=== PATIENT | female | born 1935 | race Caucasian/White ===

== ENCOUNTER 2019-07-03 09:51 | Observation (INO) ==
[2019-07-03] MEDS ORDERED: ASPIRIN 325 MG TABLET PO STA (10:34)
[2019-07-03] MEDS ORDERED: fentaNYL 100 MCG/2 ML VIAL IV STA (10:34)
[2019-07-03] MEDS ORDERED: ONDANSETRON 4 MG/2 ML VIAL IV STA ×2 (10:34→12:01)
[2019-07-03] MEDS ORDERED: hydrALAZINE 20 MG/1 ML VIAL IV STA (10:34)
[2019-07-03 10:57] LABS: Basophils # 0.1 10*3/uL (0.0-0.2); Basophils % 0.9 % (0.0-0.8); Eosinophils # 0.2 10*3/uL (0.0-0.87); Eosinophils % 2.3 % (0.00-10.9); Hematocrit 44.2 VOL% (35.7-47.0); Hemoglobin 15.5 GM/DL (12.0-16.0); Immature Granulocytes % 0.3 %; Immature Granulocytes Absolute 0.02 #; Lymphocytes % 31.5 % (21.3-54.2); Mean Corpuscular HGB Conc 35.1 GM/DL (32-36); Mean Platelet Volume 11.3 FL (9.6-12.0); Monocytes % 8.6 % (1.7-12.7); Neutrophils % 56.4 % (38.7-73.9); Platelet Count 153 T/CUMM (130-400); Red Blood Count 5.08 MC/CUMM (3.8-5.5); White Blood Count 6.4 T/CUMM (4-12)
[2019-07-03 11:08] LABS: PT Patient Result 10.6 SECS (9.6-12.2); Partial Thromboplastin Time 27.5 SECS (20.8-36.0)
[2019-07-03 11:27] LABS: Alanine Aminotransferase 27 U/L (13-56); Albumin 3.6 G/DL (3.4-5.0); Alkaline Phosphatase 124 U/L (45-117); Aspartate Amino Transferase 30 U/L (0-37); Blood Urea Nitrogen 12 MG/DL (7-18); CKMB % 4.6 %; Calcium 9.6 MG/DL (8.5-10.1); Glucose 107 MG/DL (74-106); Osmolality,Calculated 280.3 MOS/KG (273-304); Total Protein 7.7 G/DL (6.4-8.3); Troponin I < 0.015 NG/ML (0.00-0.045)
[2019-07-03] MEDS ORDERED: MEPERIDINE 50 MG/1 ML VIAL IM STA (14:45)
[2019-07-03] MEDS ORDERED: PROMETHAZINE 25 MG/1 ML VIAL IM STA (14:46)
[2019-07-03] MEDS ORDERED: cloNIDine 0.1 MG TABLET PO PRN (16:17)
[2019-07-03] MEDS ORDERED: ACETAMINOPHEN 500 MG TABLET PO PRN (16:17)
[2019-07-03] MEDS ORDERED: CLORAZEPATE 7.5 MG TABLET PO PRN (16:17)
[2019-07-03] MEDS ORDERED: ONDANSETRON 4 MG/2 ML VIAL IV PRN (16:17)
[2019-07-03] MEDS: FUROSEMIDE 20 MG/2 ML VIAL IV SCH (16:54)
[2019-07-03] MEDS: METOCLOPRAMIDE 10 MG/2 ML VIAL IV SCH (17:53)
[2019-07-03 18:25] LABS: Apearance,Urine CLOUDY (Clear); Bacteria,Urine Occasional /HPF (Few); Bilirubin,Urine Negative (Negative); Blood, Urine Negative (Negative); Glucose,Urine (UA) Negative (Negative); Hyaline Casts,Urine 4 /LPF (0-3); Ketones,Urine Negative (Negative); Mucus,Urine Occasional /LPF (Occasional); Nitrite,Urine Positive (Negative); Protein,Urine Negative; RBC,Urine 7 /HPF (0-4); Squamous Epithelial Cell,Urine Occasional /HPF (0-10); Urine Color Yellow (Yellow); Urine Urobilinogen < 2.0 EU/DL (0.2-1.0); WBC,Urine 89 /HPF (0-6)
[2019-07-03] MEDS: METOPROLOL TARTRATE 50 MG TABLET PO SCH (20:52)
[2019-07-03] MEDS ORDERED: ATORVASTATIN 40 MG TABLET PO SCH (21:00)
[2019-07-04] MEDS: METOCLOPRAMIDE 10 MG/2 ML VIAL IV SCH ×3 (00:31→13:54)
[2019-07-04 05:01] LABS: Calcium 10.1 MG/DL (8.5-10.1); Osmolality,Calculated 287.8 MOS/KG (273-304)
[2019-07-04] MEDS: FUROSEMIDE 20 MG/2 ML VIAL IV SCH (08:12)
[2019-07-04] MEDS: METOPROLOL TARTRATE 50 MG TABLET PO SCH (08:12)
[2019-07-04] MEDS ORDERED: PANTOPRAZOLE 40 MG TABLET PO SCH (09:00)
[2019-07-04] MEDS ORDERED: LOSARTAN 50 MG TABLET PO SCH (09:00)
[2019-07-04 12:04] VITALS: BP 128/81
== END 2019-07-04 13:56 | disposition home or self-care (01) ==
LOC: N.ED 09:51 → N.EDINP 09:51 → N.TELEN 16:01
PROVIDERS: ADMIT Family Medicine; ATTEND Family Medicine